=== PATIENT | male | born 1970 | race Hispanic/Latino ===

== ENCOUNTER 2023-12-13 18:33 | Emergency (ER) | payer BC, SELFPAY ==
--- NOTE | ~2023-12-13 | CT_ITS ---
CT brain wo con Ordering provider: Winston Nicolas History: 53 years Male with . New onset headache >50 . Comparison: None. Technique: CT of the head without contrast. Radiation reduction technique utilized. DLP is 605.33 mGy-cm. FINDINGS: BRAIN PARENCHYMA AND CSF SPACES: No midline shift, mass effect or hemorrhage. The brain parenchyma a nd CSF spaces are otherwise normal. VISUALIZED PARANASAL SINUSES: Well aerated. MASTOIDS: Well aerated. BONES: The bones appear intact. SOFT TISSUES: Visualized nasopharynx is normal. Superficial soft tissues are normal. IMPRESSION: No acute intracranial findings. Reviewed, dictated and finalized at location A.
--- NOTE | ~2023-12-13 | XR_ITS ---
XR chest 1V Ordering provider: Winston Nicolas MD History: 53 years Male with . CHest pain . Comparison: None. FINDINGS: MEDIASTINUM: The cardiac silhouette is not enlarged. LUNGS: No infiltrates, effusions or pneumothorax. Subsegmental chronic atelectatic changes in the left lung base. OTHER: No free air under the diaphragm. IMPRESSION: No acute cardiopulmonary pathology. Reviewed, dictated and finalized at location A.
[2023-12-13 18:47] VITALS: BP 110/60; PULSE 77; RESP 14; TEMP 36.7; O2SAT 97
[2023-12-13 20:15] VITALS: O2SAT 99
--- NOTE | 2023-12-13 21:08 | ECG_ITS ---
Test Date: 2023-12-13 22:00:20 Measurements Intervals [place] Rate: 67 P: 30 CA: 167 QRS: 10 QRSD: 95 T: 19 QT: 382 QTc: 405 Interpretive Statements SINUS RHYTHM BASELINE ARTIFACT- I, II, III, AVR, AVL NORMAL ECG No previous ECG available for comparison Electronically Signed On 12-14-2023 08:38:25 CDT by Hansel Sprague D.O.
--- NOTE | 2023-12-13 21:11 | ED.GENADULT ---
HPI - General Adult General Chief complaint: Upper Respiratory Infection Stated complaint: russ shoulder pain Time Seen by Provider: 12/13/23 19:47 History of Present Illness HPI narrative: [employer] was used for all communication. This is a 53-year-old Gabonese-speaking male presenting with multiple complaints. patient developed a sharp left-sided headache 6 days ago. Is constant, not sudden in onset, not associated with loss of consciousness or any neurologic deficits. Patient does not typically get headaches. patient also has been having pain in his shoulders that is worse with movement. He is also having chest pain in the center the of his chest when he breathes. He notes he had a subjective fever several days ago. He denies URI symptoms, shortness of, nausea vomiting diarrhea or abdominal pain. Patient is concerned he may be having a heart attack. Related Data Allergies Allergy/AdvReac Type Severity Reaction Status Date / Time No Known Allergies Allergy Verified 12/13/23 21:56 Exam Narrative: APPEARANCE: No apparent distress. Head: atraumatic, TMs normal, throat nonerythematous EYES: EOMI, NOSE: Atraumatic NECK: Trachea midline RESPIRATORY: No increased rate of breathing Clear to auscultation CARDIOVASCULAR: RRR, no peripheral edema ABDOMINAL: Non-distended soft nontender MUSCULOSKELETAl: No obvious deformities NEURO: Alert. Cranial nerves 2-12 grossly intact. Sensation light touch, motor function cerebellar function intact for 4 extremities. Gait exam was normal. SKIN:: Warm, dry. Normal color PSYCHIATRIC: Normal affect Course Vital Signs Vital signs: Vital Signs Temperature 98.0 F 12/13/23 18:47 Pulse Rate 77 12/13/23 18:47 Respiratory Rate 14 12/13/23 18:47 Blood Pressure 110/60 12/13/23 18:47 Pulse Oximetry 97 12/13/23 18:47 Oxygen Delivery Room Air 12/13/23 18:47 Temperature 98.0 F 12/13/23 18:47 Pulse Rate 77 12/13/23 18:47 Respiratory Rate 14 12/13/23 18:47 Blood Pressure 110/60 12/13/23 18:47 Pulse Oximetry 99 12/13/23 20:15 Oxygen Delivery Room Air 12/13/23 20:15 Medical Decision Making [facility] Narrative Medical decision making narrative: -Course: 53-year-old male presenting with headache and shoulder pain. Patient is also concerned that he may be having heart attack although symptoms are not consistent with ACS. Chest pain workup negative. CT head negative. Lab work significant for elevations in liver enzymes although the patient has no abdominal pain or GI symptoms. Presentation was consistent with viral illness. Patient was treated with Tylenol and Toradol with improvement in his headache. Patient be discharged to follow-up with his primary care physician for further management. -DDX includes but is not limited to: Viral illness, tension headache, muscle strain, pneumonia -Co-morbidities complicating care: High Cholesterol -Independent interpretation of studies: Labs reviewed Minor elevations in AST ALT-no GI symptoms. This can be followed by primary care. CT head negative. Chest x-ray unremarkable. Independent EKG interpretation: Rhythm [sinus], Rate 56, [place] -[normal], [place] -[normal], QRS [narrow], QTC [normal], T waves -[negative for concerning inversions], ST Segments - [Negative for concerning elevations] Final interpretations: Sinus bradycardia -Interventions: Tylenol, Toradol -Shared decision making / Disposition: Discharge -RX Motrin Vital Signs Vital Signs: Vital Signs Temperature 98.0 F 12/13/23 18:47 Pulse Rate 77 12/13/23 18:47 Respiratory Rate 14 12/13/23 18:47 Blood Pressure 110/60 12/13/23 18:47 Pulse Oximetry 97 12/13/23 18:47 Oxygen Delivery Room Air 12/13/23 18:47 Temperature 98.0 F 12/13/23 18:47 Pulse Rate 77 12/13/23 18:47 Respiratory Rate 14 12/13/23 18:47 Blood Pressure 110/60 12/13/23 18:47 Pulse Oximetry 99 12/13/23 20:15 Oxygen Delivery Room Air
[2023-12-13 21:36] LABS: Appearance Urine Clear (Clear); Bacteria Urine None Seen /hpf; Bilirubin Urine Negative (Negative); Blood Urine Negative (Negative); Color Urine Dark Yellow (Yellow); Glucose Urine UA Negative (Negative); Ketones Urine Negative (Negative); Leukocyte Esterase Ur Negative LEU/UL (Negative); Nitrate Urine Negative (Negative); Non Pathogenic Casts 0-2; Protein Urine Trace mg/dL (Negative); RBC Urine 0-2 /hpf (0-2); Specific Grav Ur 1.014 (1.001-1.035); Squamous Epithelial Cell Urine None Seen /hpf (Few); WBC Urine 0-5 /hpf (0-3); pH Urine 6.5 (5.0-9.0)
[2023-12-13 21:38] LABS: Add Urine Microscopic? YES
[2023-12-13 21:51] LABS: Basophils Percent Auto 0.3 % (0.2-1.2); Eosinophils Percent Auto 0.5 % (0-4.4); Hemoglobin 12.7 g/dL (14.0-18.0); Immature Granulocyte Absolute 0.02 K/mm3 (0.00-0.031); Immature Granulocyte Percent A 0.3 % (0-0.5); Lymphocytes Absolute Auto 1.19 K/mm3 (0.9-3.2); Lymphocytes Percent Auto 18.7 % (18.3-44.2); Mean Corpuscular HGB Conc 34.3 g/dl (32-36); Mean Corpuscular Hemoglobin 31.5 pg (26-34); Mean Corpuscular Volume 91.8 fl (80-100); Mean Platelet Volume 9.6 fl (7.4-10.4); Monocytes Absolute Auto 1.1 K/mm3 (0.1-0.6); Monocytes Percent Auto 17.3 % (2.6-8.5); Neutrophils Percent Auto 62.9 % (45.5-73.1); Platelet Count Result 259 k/mm3 (150-375); Red Blood Count 4.03 M/mm3 (4.6-6.20); Red Cell Distribution Width 12.7 % (11.5-14.5); White Blood Count 6.4 K/mm3 (4.5-10.0)
[2023-12-13 21:58] LABS: Alanine Aminotransferase 492 U/L (6-50); Albumin Level 3.9 g/dL (3.5-5.1); Alkaline Phosphatase 122 U/L (38-126); Anion Gap 8 mmol/L (4-12); Aspartate Amino Transferase 344 U/L (17-59); Bilirubin,Total 1.3 mg/dL (0.2-1.3); Blood Urea Nitrogen 11 mg/dL (9-20); Calcium 8.1 mg/dL (8.4-10.2); Carbon Dioxide 30 mmol/L (22-30); Chloride 95 mmol/L (98-107); Estimated CRCL calculation 84 ml/min; Estimated Glomerular Filt Rate > 60; Glucose 127 mg/dL (65-110); Potassium 3.7 mmol/L (3.4-5.0); Sodium 133 mmol/L (137-145)
[2023-12-13] MEDS: ACETAMINOPHEN 500 MG TABLET 1000 MG PO (21:59)
[2023-12-13 22:05] LABS: Influenza A QL RT-PCR Negative (Negative); Influenza B QL RT-PCR Negative (Negative); RSV RNA, RT-PCR Negative (Negative); SARS-CoV-2 RNA PCR Negative (Negative)
[2023-12-13 22:10] LABS: Troponin I < 0.012 ng/mL (0.000-0.034)
--- NOTE | 2023-12-14 00:30 | ECG_ITS ---
Test Date: 2023-12-14 00:24:35 Measurements Intervals [place] Rate: 55 P: 27 ND: 166 QRS: 15 QRSD: 97 T: 16 QT: 436 QTc: 418 Interpretive Statements SINUS BRADYCARDIA POSSIBLE LEFT ATRIAL ENLARGEMENT BORDERLINE ECG Compared to ECG 12/13/2023 22:00:20 HEART RATE HAS DECREASED Electronically Signed On 12-14-2023 08:36:02 CDT by Hansel Sprague D.O.
[2023-12-14] MEDS: KETOROLAC 30 MG/ML VIAL (*BKC) IM (00:43)
[2023-12-14 00:56] LABS: Troponin I < 0.012 ng/mL (0.000-0.034)
[2023-12-14 01:40] VITALS: BP 100/60; RESP 16
== END 2023-12-14 01:40 | disposition home or self-care (01) ==
PROVIDERS: Emergency Provider Emergency Medicine; PCP Registered Nurse
DX: R51.9 Headache, unspecified (principal); R74.01 Elevation of levels of liver transaminase levels; Z20.822 Contact with and (suspected) exposure to COVID-19; E78.00 Pure hypercholesterolemia, unspecified; R00.1 Bradycardia, unspecified; R94.31 Abnormal electrocardiogram [ECG] [EKG]
CPT/HCPCS: 36415; 70450; 71045; 80053; 81001; 84484; 85025; 87637; 93005; 96372; 99284; A9270; J1885